=== PATIENT | female | born 1975 | race Caucasian/White ===

== ENCOUNTER 2025-02-25 10:34 | Emergency (ER) | payer BC ==
[~2025-02-25] VITALS: Ht 172.7 cm; Wt 98.6 kg
--- NOTE | 2025-02-25 11:18 | Physician Documentation ---
History of Present Illness General Chief Complaint: Post-operative complication Stated Complaint: FOOT PAIN Time Seen by MD: 11:09 Mode of Arrival: Dropped Off History of Present Illness Initial Comments The patient is a 49-year-old female who underwent surgery on her left foot 14 days ago for flat foot redness. The sutures have not been removed as planned and she has developed some redness around the surgical wound. Medication Reconciliation Allergies: Coded Allergies: Penicillins (Unverified Allergy, Unknown, 02/25/25) Review of Systems ROS Constitutional: Denies chills, fatigue, fever, weight gain or weight loss. HEENT: Denies hearing loss, sinus pressure or visual changes. Respiratory: Denies cough, shortness of breath or wheezing. Cardiovascular: Denies chest pain, pain while walking (claudication), edema or palpitations. Gastrointestinal: Denies abdominal pain, blood in stool, constipation, diarrhea, heartburn, loss of appetite, nausea or vomiting. Genitourinary: Denies painful urination (dysuria), excessive amount of urine (polyuria) or urinary frequency. Metabolic/Endocrine: Denies cold intolerance, heat intolerance, excessive thirst (polydipsia) or excessive hunger (polyphagia). Neurological: Denies dizziness, extremity numbness, extremity weakness, headaches, seizures or tremors. Psychiatric: Denies anxiety or depression. Integumentary: Denies breast discharge, breast lump, hives, mole change(s), rash or skin lesion. Musculoskeletal: Left foot recent surgical wound, sutures in place slightly red Hematologic: Denies easily bleeding, easily bruises, lymphedema or issues with blood clots. Immunologic: Denies food allergies or seasonal allergies. Physical Exam Physical Exam Vital Signs: Temperature: 98.8, Source: Oral, Heart Rate: 82, Respiratory Rate: 18, BP: 124/80, Pulse Oximetry: 96, Weight: 98.600 Oxygen Flow Rate: 0 Physical Exam Physical Exam Vitals and nursing note reviewed. Constitutional: General: Patient is awake, alert, oriented x 4 in no acute distress and well appearing. Speech is clear and lucid. Appearance: Normal appearance. Patient is not ill-appearing, toxic-appearing or diaphoretic. HENT: Head: Normocephalic and atraumatic. Mouth/Throat: Mouth: Mucous membranes are moist. Pharynx: Oropharynx is clear. Eyes: General: No scleral icterus. Extraocular Movements: Extraocular movements intact. Pupils: Pupils are equal, round, and reactive to light. Neck: Supple, no Kernig or Brudzinski sign. Cardiovascular: Rate and Rhythm: Normal rate and regular rhythm. Heart sounds: No murmur heard. Pulmonary: Effort: No respiratory distress. Breath sounds: No wheezing, rhonchi or rales. Abdominal: General: There is no distension. Palpations: There is no fluid wave, hepatomegaly or mass. Tenderness: There is no abdominal tenderness. There is no guarding. Musculoskeletal: General: Examination of the left foot reveals a longitudinal surgical wound at the mid foot medially with sutures in place and slight redness Skin: Coloration: Skin is not jaundiced. Findings: No erythema or rash. Neurological: Mental Status: Patient is alert. Progress Results/Orders Results/Orders Orders - SANJIV MATA MD General Nursing Order (02/25/25 ) Vital Signs 02/25/25 02/25/25 10:39 10:54 Temp 98.8 Pulse 82 Resp 16 18 B/P (MAP) 124/80 Pulse Ox 96 O2 Flow Rate 0 Medical Decision Making Findings This patient had recent surgery for flatfoot in his on her left foot and the sutures were not removed this scheduled. I am going to remove them today. The wound has dehisced slightly and we will bandage it. Departure Disposition: 01 HOME / SELF CARE / HOMELESS Impression: Primary Impression: Encounter for postoperative wound check Additional Impression: Visit for suture removal Condition: Stable Referrals: NO PRIMARY CARE PROVIDER (PCP) Education Educated: Patient Educated regarding: diagnosis, treatment, prognosis, need for follow up Signature Scribe Signature: . Attestation: . SANJIV MATA MD Feb 25, 2025 11:18
[2025-02-25 11:42] VITALS: BP 109/81; PULSE 74; RESP 12; TEMP 98.8; O2SAT 95
== END 2025-02-25 11:45 | disposition home or self-care (01) ==
LOC: ER 10:35
DX: S90.922D Unspecified superficial injury of left foot, subsequent encounter (principal); Z88.0 Allergy status to penicillin; X58.XXXD Exposure to other specified factors, subsequent encounter
CPT/HCPCS: 99281; J7030; A6258; A6449